=== PATIENT | male | born 2000 | race Caucasian/White ===

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

== ENCOUNTER 2019-09-27 14:31 | Emergency (ER) | payer SELFPAY ==
--- NOTE | 2019-09-27 15:25 | ER ---
Nurse's Notes [facility] Name: Doyle Grayson Age: 18 yrs Sex: Male : 2000 Arrival Date: 09/27/2019 Time: 14:33 Bed 23 Private MD: Diagnosis: Low back pain;Pain in left wrist;Pain in right wrist Presentation: 09/27 15:06 Presenting complaint: Patient states: Back pain started a month ago, bilateral wrist rb1 pain x 1 week. Transition of care: patient was not received from another setting of care. Onset of symptoms was August 28, 2019. 15:06 Method Of Arrival: Ambulatory rb1 15:06 Acuity: DORIAN 3 rb1 15:42 Risk Assessment: Do you want to hurt yourself or someone else? Patient reports no tr5 desire to harm self or others. Initial Sepsis Screen: Does the patient meet any 2 criteria? No. Patient's initial sepsis screen is negative. Does the patient have a suspected source of infection? No. Patient's initial sepsis screen is negative. Care prior to arrival: None. Triage Assessment: 15:08 General: Appears in no apparent distress. Behavior is calm, cooperative. tr5 15:09 Neuro: Level of Consciousness is awake, alert, obeys commands, Oriented to person, rb1 place, time, situation. Cardiovascular: Capillary refill < 3 seconds is brisk in bilateral fingers. Respiratory: Airway is patent Respiratory effort is even, unlabored, Respiratory pattern is regular, symmetrical. Derm: Skin is pink, warm \T\ dry. Musculoskeletal: Range of motion: intact in all extremities. Historical: - Allergies: 15:07 No Known Allergies; rb1 - PMHx: 15:07 ADD/ADHD; Overdose; rb1 - PSHx: 15:07 L femur; rb1 - Immunization history:: Adult Immunizations up to date. - Social history:: Smoking status: Patient uses tobacco products, smokes one pack cigarettes per day. - Ebola Screening: : Patient negative for fever greater than or equal to 101.5 degrees Fahrenheit, and additional compatible Ebola Virus Disease symptoms. Screenin:26 Abuse screen: Denies threats or abuse. Nutritional screening: No deficits noted. tr5 Tuberculosis screening: No symptoms or risk factors identified. Fall Risk None identified. Assessment: 15:26 Pain: Complains of pain in Bilateral wrists. Pain: Complains of pain in back. Neuro: tr5 Cardiovascular: Heart tones present Capillary refill < 3 seconds. Respiratory: Airway is patent Respiratory effort is even, unlabored, Respiratory pattern is regular, symmetrical. GI: No signs and/or symptoms were reported involving the gastrointestinal system. : No signs and/or symptoms were reported regarding the genitourinary system. EENT: No signs and/or symptoms were reported regarding the EENT system. Derm: No signs and/or symptoms reported regarding the dermatologic system. Vital Signs: 15:07 BP 107 / 66; Pulse 69; Resp 16; Temp 98.7(TE); Pulse Ox 98% on R/A; Weight 63.5 kg (R); rb1 Height 5 ft. 1 in. (154.94 cm) (R); Pain 6/10; 15:07 Body Mass Index 26.45 (63.50 kg, 154.94 cm) rb1 ED Course: 14:33 Patient arrived in ED. as 15:07 Triage completed. rb1 15:07 Arm band placed on left wrist. rb1 15:10 Yina Mann FNP-C [facility]. kb 15:10 Arthur Samaniego MD is Attending Physician. kb 15:15 Binh Galvan, KALIN is Primary Nurse. tr5 15:26 Placed in gown. Bed in low position. Call light in reach. tr5 15:41 No provider procedures requiring assistance completed. Patient did not have IV access tr5 during this emergency room visit. Administered Medications: No medications were administered Outcome: 15:24 Discharge ordered by MD. kb 15:43 Discharged to home ambulatory. tr5 15:43 Condition: stable 15:43 Discharge instructions given to patient, Instructed on discharge instructions, follow up and referral plans. Demonstrated understanding of instructions, follow-up care. 15:46 Patient left the ED. tr5 Signatures: Yina Mann FNP-C FNP-Zuleyma Rosales Rebecca, RN RN rb1 Binh Galvan RN RN tr5
--- NOTE | 2019-09-27 15:25 | EDPHYS ---
Physician Documentation [facility] Name: Doyle Grayson Age: 18 yrs Sex: Male : 2000 Arrival Date: 09/27/2019 Time: 14:33 Bed 23 Private MD: ED Physician Arthur Samaniego HPI: 09/27 15:26 This 18 yrs old Male presents to ER via Ambulatory with complaints of Wrist kb Pain, Back Pain. 15:26 The patient or guardian reports pain. The complaints affect the left wrist diffusely, kb right wrist diffusely. Context: The problem was sustained at home, resulted from an unknown cause. Onset: The symptoms/episode began/occurred 1 week(s) ago. Modifying factors: The symptoms are alleviated by nothing, the symptoms are aggravated by nothing. Associated signs and symptoms: The patient has no apparent associated signs or symptoms. The patient has not experienced similar symptoms in the past. The patient has not recently seen a physician. Pt reports he has had some falls skateboarding and has right lower back pain from that. States the pain started a month ago. Also reports weakness to both wrists with a hard knot in left wrist. States "someone told me it could be a calcium deposit." Denies injury to wrists. Has full ROM. Denies pain with movement. States he came in today because he normally doesn't have time off of work to get it checked out and he has a couple of days off right now.. Historical: - Allergies: 15:07 No Known Allergies; rb1 - PMHx: 15:07 ADD/ADHD; Overdose; rb1 - PSHx: 15:07 L femur; rb1 - Immunization history:: Adult Immunizations up to date. - Social history:: Smoking status: Patient uses tobacco products, smokes one pack cigarettes per day. - Ebola Screening: : Patient negative for fever greater than or equal to 101.5 degrees Fahrenheit, and additional compatible Ebola Virus Disease symptoms. ROS: 15:25 Constitutional: Negative for fever, chills, and weight loss, Neck: Negative for injury, kb pain, and swelling, Cardiovascular: Negative for chest pain, palpitations, and edema, Respiratory: Negative for shortness of breath, cough, wheezing, and pleuritic chest pain, Abdomen/GI: Negative for abdominal pain, nausea, vomiting, diarrhea, and constipation, : Negative for injury, bleeding, discharge, and swelling, Skin: Negative for injury, rash, and discoloration, Neuro: Negative for headache, weakness, numbness, tingling, and seizure. 15:25 Back: Positive for pain at rest, pain with movement, of the right mid back and right low back. 15:25 MS/extremity: Positive for pain, of the right wrist and left wrist. Exam: 15:26 Constitutional: This is a well developed, well nourished patient who is awake, alert, kb and in no acute distress. Head/Face: Normocephalic, atraumatic. ENT: Nares patent. No nasal discharge, no septal abnormalities noted. Tympanic membranes are normal and external auditory canals are clear. Oropharynx with no redness, swelling, or masses, exudates, or evidence of obstruction, uvula midline. Mucous membranes moist. Neck: Trachea midline, no thyromegaly or masses palpated, and no cervical lymphadenopathy. Supple, full range of motion without nuchal rigidity, or vertebral point tenderness. No Meningismus. Chest/axilla: Normal chest wall appearance and motion. Nontender with no deformity. No lesions are appreciated. Cardiovascular: Regular rate and rhythm with a normal S1 and S2. No gallops, murmurs, or rubs. Normal PMI, no JVD. No pulse deficits. Respiratory: Lungs have equal breath sounds bilaterally, clear to auscultation and percussion. No rales, rhonchi or wheezes noted. No increased work of breathing, no retractions or nasal flaring. Abdomen/GI: Soft, non-tender, with normal bowel sounds. No distension or tympany. No guarding or rebound. No evidence of tenderness throughout. Skin: Warm, dry with normal turgor. Normal color with no rashes, no lesions, and no evidence of cellulitis. MS/ Extremity: Pulses equal, no cyanosis. Neurovascular intact. Full, normal range of motion. Neuro: Awake and alert, GCS 15, oriented to person, place, time, and situation. Cranial nerves II-XII grossly intact. Motor strength 5/5 in all extremities. Sensory grossly intact. Cerebellar exam normal. Normal gait. 15:26 Back: pain, that is mild, of the right mid back and right low back. Vital Signs: 15:07 BP 107 / 66; Pulse 69; Resp 16; Temp 98.7(TE); Pulse Ox 98% on R/A; Weight 63.5 kg (R); rb1 Height 5 ft. 1 in. (154.94 cm) (R); Pain 6/10; 15:07 Body Mass Index 26.45 (63.50 kg, 154.94 cm) rb1 MDM: 15:11 Patient medically screened. kb 15:24 Data reviewed: vital signs, nurses notes. Data interpreted: Pulse oximetry: on room air kb is 98 %. Interpretation: normal. Counseling: I had a detailed discussion with the patient and/or guardian regarding: the historical points, exam findings, and any diagnostic results supporting the discharge/admit diagnosis, the need for outpatient follow up, a orthopedic surgeon, to return to the emergency department if symptoms worsen or persist or if there are any questions or concerns that arise at home. Administered Medications: No medications were administered Disposition: 09/27/19 15:24 Discharged to Home. Impression: Low back pain, Pain in left wrist, Pain in right wrist. - Condition is Stable. - Discharge Instructions: Musculoskeletal Pain, Back Pain, Adult, [id number], Wrist Pain, [id number], Back Exercises, [id number]. - Medication Reconciliation Form, Thank You Letter, Antibiotic Education, Prescription Opioid Use form. - Follow up: Emergency Department; When: As needed; Reason: Worsening of condition. Follow up: Private Physician; When: 2 - 3 days; Reason: Recheck today's complaints, Continuance of care, Re-evaluation by your physician. Addendum: 10/05/2019 11:03 Co-signature as Attending Physician, Arthur Samaniego MD I agree with the assessment and c parikh plan of care. Signatures: Yina Mann, ONLINE PROJECT MANAGER-C ONLINE PROJECT MANAGER-Arthur Villalpando MD MD cha Barber, Rebecca, RN RN rb1 Binh Galvan RN RN tr5 Corrections: (The following items were deleted from the chart) 09/27 15:46 15:24 09/27/2019 15:24 Discharged to Home. Impression: Low back pain; Pain in left tr5 wrist; Pain in right wrist. Condition is Stable. Forms are Medication Reconciliation Form, Thank You Letter, Antibiotic Education, Prescription Opioid Use. Follow up: Emergency Department; When: As needed; Reason: Worsening of condition. Follow up: Private Physician; When: 2 - 3 days; Reason: Recheck today's complaints, Continuance of care, Re-evaluation by your physician. kb
[2019-09-27 16:19] VITALS: BP 107/66; TEMP 98.7; O2SAT 98
== END 2019-09-27 15:46 | disposition home or self-care (01) ==
LOC: ER 14:31
DX: M25.532 Pain in left wrist (principal); M25.531 Pain in right wrist; F17.210 Nicotine dependence, cigarettes, uncomplicated
CPT/HCPCS: 99281

== ENCOUNTER 2022-06-05 07:58 | Emergency (ER) | payer SELFPAY ==
--- NOTE | 2022-06-05 08:41 | RAD REPORT ---
EXAM DESCRIPTION: CT - [id number] - 06/05/2022 8:27 am CLINICAL HISTORY: Fall injury, head and neck trauma, headache and neck pain COMPARISON: No comparisons TECHNIQUE: Axial 5 mm thick images of the head were obtained. Axial 2 mm thick images of the cervic al spine were obtained with sagittal and coronal reconstruction images generated and reviewed. All CT scans are performed using dose optimization technique as appropriate and may include automated exposure control or mA/KV adjustment according to patient size. FINDINGS: No intracranial hemorrhage, mass, edema or acute intracranial finding. Sulci are normal ra nge for patient age. Ventricles are normal. No extra-axial fluid collections. Mastoid air cells and p aranasal sinuses are clear. No globe or orbit abnormality seen. Cervical body height and alignment are normal. No disk space narrowing. Anterior endplate spurring at C6-7. No fracture or acute bony abnormality. Central canal detail is inherently limited. No paraspinal mass or hematoma. IMPRESSION: Negative CT head examination for acute or significant finding. Negative CT cervical spine examination for acute or significant finding. Patient has early age anter ior endplate spurring at C6-7.
[2022-06-05] MEDS ORDERED: ONDANSETRON 4 MG (ODT) TAB ONE (08:44)
[2022-06-05] MEDS ORDERED: ACETAMINOPHEN 500 MG TAB ONE (08:44)
--- NOTE | 2022-06-05 09:03 | ER ---
Nurse's Notes [facility] Name: Doyle Grayson Age: 21 yrs Sex: Male : 2000 Arrival Date: 06/05/2022 Time: 08:03 Bed 12 Private MD: Diagnosis: Fall (on)(from) incline;Headache;Conjunctival hemorrhage, left eye Presentation: 06/05 08:13 Chief complaint: Patient states: fell 5 ft while skate boarding off half pipe, pressure kr3 in head and tightness of muscles in neck. Coronavirus screen: Vaccine status: Patient reports being unvaccinated. Client denies travel out of the [place] in the last 14 days. Ebola Screen: Patient denies travel to an Ebola-affected area in the 21 days before illness onset. Mechanism of Injury: resulted from a fall, while skating. 08:13 Method Of Arrival: Ambulatory kr3 08:13 Acuity: DORIAN 3 kr3 09:13 Initial Sepsis Screen: Does the patient meet any 2 criteria? No. Patient's initial 1 sepsis screen is negative. Does the patient have a suspected source of infection? No. Patient's initial sepsis screen is negative. Risk Assessment: Do you want to hurt yourself or someone else? Patient reports no desire to harm self or others. 10:53 Onset of symptoms was June 04, 2022. 1 Triage Assessment: 08:23 General: Appears in no apparent distress. uncomfortable, Behavior is calm, cooperative, kr3 appropriate for age. 10:52 Neuro: Level of Consciousness is awake, alert, obeys commands, Reports headache. ll1 Historical: - PMHx: 08:22 ADD/ADHD; Overdose; kr3 - Immunization history:: Adult Immunizations up to date. - Social history:: Smoking status: Patient reports the use of cigarette tobacco products, smokes one pack cigarettes per day. Screenin:13 Abuse screen: Denies threats or abuse. Nutritional screening: No deficits noted. ll1 Tuberculosis screening: No symptoms or risk factors identified. Fall Risk Total Barba Fall Scale indicates No Risk (0-24 pts). Assessment: 08:40 Pain: Complains of pain in back of head and neck. kr3 09:13 Reassessment: No changes from previously documented assessment. Patient and/or family ll1 updated on plan of care and expected duration. Pain level reassessed. Vital Signs: 08:13 BP 119 / 76; Pulse 65; Resp 18; Temp 97.9; Pulse Ox 98% ; Weight 83.91 kg; Height 5 ft. kr3 2 in. (157.48 cm); 08:13 Body Mass Index 33.84 (83.91 kg, 157.48 cm) kr3 Alina Coma Score: 08:13 Eye Response: spontaneous(4). Verbal Response: oriented(5). Motor Response: obeys kr3 commands(6). Total: 15. 08:20 Eye Response: spontaneous(4). Verbal Response: oriented(5). Motor Response: obeys pm1 commands(6). Total: 15. 08:20 Eye Response: spontaneous(4). Verbal Response: oriented(5). Motor Response: obeys pm1 commands(6). Total: 15. ED Course: 08:03 Patient arrived in ED. mr 08:07 Xander Reyes, NIC is PHCP. pm1 08:07 Jose C Wong MD is Attending Physician. pm1 08:21 Triage completed. kr3 08:24 Patient placed in an exam room, on a stretcher. kr3 08:28 CT Head C Spine In Process Unspecified. EDMS 08:39 Nikki Lu RN is Primary Nurse. kr3 09:10 Patient has correct armband on for positive identification. Bed in low position. Call ll1 light in reach. Cardiac monitoring not applicable on this patient. 09:13 Arm band placed on. ll1 09:13 No provider procedures requiring assistance completed. Patient did not have IV access ll1 during this emergency room visit. Administered Medications: 08:35 Drug: Zofran (Ondansetron) 4 mg Route: PO; kr3 10:54 Follow up: Response: No adverse reaction ll1 08:35 Drug: Tylenol 1000 mg Route: PO; kr3 10:54 Follow up: Response: No adverse reaction ll1 Medication: 10:54 VIS not applicable for this client. ll1 Outcome: 09:03 Discharge ordered by . pm1 09:13 Patient left the ED. ll1 09:13 Discharged to home ambulatory. ll1 09:13 Condition: stable 09:13 Discharge instructions given to patient, Instructed on discharge instructions, follow up and referral plans. medication usage, Demonstrated understanding of instructions, follow-up care, medications, Prescriptions given X 1. Signatures: Dispatcher [employer] Medina Russell AmyXander NP TAB BUILDER pm1 John Arias RN RN ll1 Nikki Lu RN RN kr3
--- NOTE | 2022-06-05 09:04 | EDPHYS ---
Physician Documentation [facility] Name: Doyle Grayson Age: 21 yrs Sex: Male : 2000 Arrival Date: 06/05/2022 Time: 08:03 Bed 12 Private MD: ED Physician Jose C Wong HPI: 06/05 08:20 This 21 yrs old Male presents to ER via Unassigned with complaints of Head Injury-Adult.pm1 08:20 The patient or guardian reports pain. The complaints affect the right side of the back pm1 of head. Context of injury: The problem was sustained outdoors, at On skateboarding quarter pike, resulted from a fall, skateboarding, 5 foot tall quarter pike. Onset: The symptoms/episode began/occurred yesterday. Associated signs and symptoms: Loss of consciousness: This patient did not experience any loss of consciousness. Pertinent positives: nausea, neck pain, Pertinent negatives: vomiting. Severity of symptoms: in the emergency department the symptoms have improved, neck pain improved. The patient has not experienced similar symptoms in the past. The patient has not recently seen a physician. Patient skating up quarter pike and then fell when he attempted a move to stay at the top of the pike. Patient landed flat on his back hitting his head. Negative for LOC. Positive for headache and neck pain. Neck pain has improved. Positive for nausea. Negative for vomiting, Numbness tingling and weakness to extremities. Historical: - PMHx: 08:22 ADD/ADHD; Overdose; kr3 - Immunization history:: Adult Immunizations up to date. - Social history:: Smoking status: Patient reports the use of cigarette tobacco products, smokes one pack cigarettes per day. ROS: 08:20 Constitutional: Negative for fever, chills, and weight loss, Cardiovascular: Negative pm1 for chest pain, palpitations, and edema, Respiratory: Negative for shortness of breath, cough, wheezing, and pleuritic chest pain. 08:20 Back: Negative for injury and pain, MS/Extremity: Negative for injury and deformity, Skin: Negative for injury, rash, and discoloration. 08:20 Neck: Positive for mild neck pain that has improved from yesterday, Negative for stiffness, swelling. 08:20 Abdomen/GI: Positive for nausea, Negative for abdominal pain, vomiting. 08:20 Neuro: Positive for headache, of the right side of the back of head, Negative for gait disturbance, loss of consciousness, numbness, tingling, weakness. 08:20 All other systems are negative. Exam: 08:20 Constitutional: This is a well developed, well nourished patient who is awake, alert, pm1 and in no acute distress. Head/Face: Normocephalic, atraumatic. 08:20 Skin: Warm, dry with normal turgor. Normal color with no rashes, no lesions, and no evidence of cellulitis. MS/ Extremity: Pulses equal, no cyanosis. Neurovascular intact. Full, normal range of motion. 08:20 Eyes: 08:20 Eyes: Pupils: no acute changes, shape is regular, normal reaction to light, Extraocular movements: no acute changes, Conjunctiva: subconjunctival hemorrhage(s), seen in the left eye, at 9 o'clock. 08:20 ENT: Exam is negative for acute changes, External ear(s): are unremarkable, Ear canal(s): are normal, bleeding, is not appreciated, TM's: are normal, no rupture. 08:20 Neck: Exam negative for acute changes, External neck: no acute changes, tenderness, is not appreciated, C-spine: vertebral tenderness, is not appreciated, ROM/movement: is normal, is supple, without pain, no range of motions limitations. 08:20 Cardiovascular: Exam negative for acute changes, Rate: normal, Rhythm: regular, Pulses: no pulse deficits are appreciated. 08:20 Respiratory: Exam negative for acute changes, respiratory distress, shortness of breath. 08:20 Abdomen/GI: Inspection: abdomen appears normal, Palpation: abdomen is soft and non-tender, in all quadrants. 08:20 Back: Exam negative for acute changes, pain, is absent, ROM is normal, painless. 08:20 Neuro: Exam negative for acute changes, Orientation: is normal, Mentation: is normal, Motor: is normal, moves all fours, Gait: is steady, at a normal pace, without difficulty. Vital Signs: 08:13 BP 119 / 76; Pulse 65; Resp 18; Temp 97.9; Pulse Ox 98% ; Weight 83.91 kg; Height 5 ft. kr3 2 in. (157.48 cm); 08:13 Body Mass Index 33.84 (83.91 kg, 157.48 cm) kr3 Alina Coma Score: 08:13 Eye Response: spontaneous(4). Verbal Response: oriented(5). Motor Response: obeys kr3 commands(6). Total: 15. 08:20 Eye Response: spontaneous(4). Verbal Response: oriented(5). Motor Response: obeys pm1 commands(6). Total: 15. 08:20 Eye Response: spontaneous(4). Verbal Response: oriented(5). Motor Response: obeys pm1 commands(6). Total: 15. MDM: 08:07 Patient medically screened. pm1 08:17 Data reviewed: vital signs. pm1 09:02 Counseling: I had a detailed discussion with the patient and/or guardian regarding: the pm1 historical points, exam findings, and any diagnostic results supporting the discharge/admit diagnosis, radiology results, the need for outpatient follow up, to return to the emergency department if symptoms worsen or persist or if there are any questions or concerns that arise at home. 06/05 08:19 Order name: CT Head C Spine; Complete Time: 08:43 pm1 Administered Medications: 08:35 Drug: Zofran (Ondansetron) 4 mg Route: PO; kr3 10:54 Follow up: Response: No adverse reaction ll1 08:35 Drug: Tylenol 1000 mg Route: PO; kr3 10:54 Follow up: Response: No adverse reaction ll1 Disposition: 16:11 Co-signature as Attending Physician, Jose C Wong MD. rn Disposition Summary: 06/05/22 09:03 Discharge Ordered Location: Home pm1 Problem: new pm1 Symptoms: have improved pm1 Condition: Stable pm1 Diagnosis - Fall (on)(from) incline pm1 - Headache pm1 - Conjunctival hemorrhage, left eye pm1 Followup: pm1 - With: Emergency Department - When: As needed - Reason: Worsening of condition Followup: pm1 - With: Private Physician - When: 2 - 3 days - Reason: Recheck today's complaints, Continuance of care, Re-evaluation by your physician Discharge Instructions: - Discharge Summary Sheet pm1 - General Headache Without Cause pm1 - Subconjunctival Hemorrhage pm1 Forms: - Medication Reconciliation Form pm1 - Thank You Letter pm1 - Antibiotic Education pm1 - Prescription Opioid Use pm1 Prescriptions: - ondansetron 4 mg Oral tablet,disintegrating - take 1 tablet by ORAL route every 8 hours As needed; 10 tablet; Refills: 0, pm1 Product Selection Permitted Signatures: Dispatcher [employer] EDJose C Ramirez MD MD rn Marinas, Patrick, NP [employer]BIEE LEAD DEVELOPER pm1 Nikki Lu RN RN kr3 John Arias RN ll1
[2022-06-05 10:23] VITALS: BP 119/76; TEMP 97.9; O2SAT 98
== END 2022-06-05 09:13 | disposition home or self-care (01) ==
LOC: ER 07:58
DX: R51.9 Headache, unspecified (principal); H11.31 Conjunctival hemorrhage, right eye; W10.2XXA Fall (on)(from) incline, initial encounter; F17.210 Nicotine dependence, cigarettes, uncomplicated
CPT/HCPCS: 70450; 72125; 99283; Q0162

== ENCOUNTER 2022-06-13 10:41 | Emergency (ER) | payer SELFPAY ==
--- NOTE | 2022-06-13 11:35 | RAD REPORT ---
EXAM DESCRIPTION: RAD - Shoulder Left 2 View - 06/13/2022 11:20 am CLINICAL HISTORY: PAIN COMPARISON: No comparisons TECHNIQUE: Internal and external rotation views of the left shoulder were obtained. FINDINGS: There is no fracture or dislocation. AC joint is normal in appearance. No acute or suspici ous findings. IMPRESSION: Negative two-view left shoulder examination for acute findings.
--- NOTE | 2022-06-13 11:36 | RAD REPORT ---
EXAM DESCRIPTION: RAD - Knee Right 3 View - 06/13/2022 11:21 am CLINICAL HISTORY: PAIN COMPARISON: No comparisonsNone. FINDINGS: No fracture, dislocation or periosteal reaction.No joint effusion seen. No joint space kai rowing. No foreign body or other soft tissue abnormality. IMPRESSION: Negative right knee.
[2022-06-13] MEDS ORDERED: HYDROCODONE/APAP 5/325 MG TAB ONE (11:45)
--- NOTE | 2022-06-13 12:45 | EDPHYS ---
Physician Documentation [facility] Name: Doyle Grayson Age: 21 yrs Sex: Male : 2000 Arrival Date: 06/13/2022 Time: 10:46 Bed 10 Private MD: ED Physician Jose C Wong HPI: 06/13 11:02 This 21 yrs old Male presents to ER via Ambulatory with complaints of Knee Pain, pm1 Shoulder Pain. 11:02 The patient presents with an injury. The complaints affect the right knee. Context: The pm1 problem was sustained outdoors, resulted from Planting his right foot hard while skateboarding, the patient can fully bear weight, the patient is able to ambulate, Problem is a result from a previous injury: No. Onset: The symptoms/episode began/occurred 3 day(s) ago. Modifying factors: The symptoms are alleviated by elevating leg, the symptoms are aggravated by weight bearing, bending knee. Associated signs and symptoms: Pertinent negatives calf tenderness, swelling, tingling. Treatment prior to arrival includes: no previous treatment. Severity of symptoms: in the emergency department the symptoms are unchanged. The patient has not experienced similar symptoms in the past. The patient has not recently seen a physician. Patient also reporting left shoulder pain that is been present multiple years. Negative for new acute injury. Historical: - Allergies: 10:53 shrimp; bm7 10:53 ants; bm7 10:53 cats; bm7 - Home Meds: 10:53 None [Active]; bm7 - PMHx: 10:53 ADD/ADHD; bm7 - PSHx: 10:53 femur; bm7 - Immunization history:: Adult Immunizations up to date, Client reports having NOT received the Covid vaccine. - Social history:: Smoking status: Reported history of juuling and/or vaping. ROS: 11:02 Constitutional: Negative for fever, chills, and weight loss, Cardiovascular: Negative pm1 for chest pain, palpitations, and edema, Respiratory: Negative for shortness of breath, cough, wheezing, and pleuritic chest pain, Skin: Negative for injury, rash, and discoloration. 11:02 Neuro: Negative for headache, weakness, numbness, tingling, and seizure. 11:02 MS/extremity: Positive for Right knee pain, left shoulder pain, Negative for decreased range of motion, deformity. 11:02 All other systems are negative. Exam: 11:02 Constitutional: This is a well developed, well nourished patient who is awake, alert, pm1 and in no acute distress. Head/Face: Normocephalic, atraumatic. 11:02 Skin: Warm, dry with normal turgor. Normal color with no rashes, no lesions, and no evidence of cellulitis. 11:02 Eyes: Exam is negative for acute changes. 11:02 ENT: Exam is negative for acute changes, Mouth: no acute changes, Lips: normal, moist, Oral mucosa: normal, pink and intact, moist. 11:02 Cardiovascular: Exam negative for acute changes, Rate: normal, Rhythm: regular, Pulses: no pulse deficits are appreciated. 11:02 Respiratory: Exam negative for acute changes, respiratory distress, shortness of breath. 11:02 Musculoskeletal/extremity: Extremities: grossly normal except: noted in the right knee: Medial aspect of right knee with pain from positive Apley maneuver, internal rotation stress tests. Negative for drawer test. Patient able to extend and flex right knee passively and actively, Full range of motion intact passively and actively to left shoulder. 11:02 Neuro: Exam negative for acute changes, Orientation: is normal, Mentation: is normal, Motor: is normal, moves all fours. Vital Signs: 10:52 BP 138 / 90; Pulse 61; Resp 16; Temp 98.0(TE); Pulse Ox 100% on R/A; Weight 83.91 kg bm7 (R); Height 5 ft. 3 in. (160.02 cm); Pain 10/10; 12:22 BP 128 / 76; Pulse 74; Resp 16; Pulse Ox 100% on R/A; bm7 10:52 Body Mass Index 32.77 (83.91 kg, 160.02 cm) bm7 MDM: 11:03 Patient medically screened. pm1 11:12 ED course: Patient refused crutches because he has many pairs at home already. pm1 12:44 Data reviewed: vital signs. Data interpreted: Pulse oximetry: on room air is 100 %. pm1 Interpretation: normal. Counseling: I had a detailed discussion with the patient and/or guardian regarding: the historical points, exam findings, and any diagnostic results supporting the discharge/admit diagnosis, radiology results, the need for outpatient follow up, a orthopedic surgeon, to return to the emergency department if symptoms worsen or persist or if there are any questions or concerns that arise at home. 06/13 10:56 Order name: Shoulder Left (2 View) XRAY; Complete Time: 11:39 pm1 06/13 10:56 Order name: Knee Right 3 View XRAY; Complete Time: 11:39 pm1 06/13 11:12 Order name: Knee Immobilizer; Complete Time: 11:13 pm1 Administered Medications: 11:54 Drug: HYDROcodone-acetaminophen 5 mg-325 mg 1 tabs Route: PO; ss 13:11 Follow up: Response: Pain is decreased bm7 Disposition Summary: 06/13/22 12:45 Discharge Ordered Location: Home pm1 Problem: new pm1 Symptoms: have improved pm1 Condition: Stable pm1 Diagnosis - Unspecified internal derangement of left knee pm1 - Pain in right shoulder pm1 Followup: pm1 - With: Emergency Department - When: As needed - Reason: Worsening of condition Followup: pm1 - With: Private Physician - When: 2 - 3 days - Reason: Recheck today's complaints, Continuance of care, Re-evaluation by your physician Discharge Instructions: - Discharge Summary Sheet pm1 - Crutch Use, Adult pm1 - How to Use a Knee Immobilizer pm1 - Shoulder Pain pm1 - Acute Knee Pain, Adult pm1 Forms: - Medication Reconciliation Form pm1 - Thank You Letter pm1 - Antibiotic Education pm1 - Prescription Opioid Use pm1 Prescriptions: - Diclofenac Sodium 75 mg Oral tablet,delayed release (DR/EC) - take 1 tablet by ORAL route 2 times per day As needed; 30 tablet; Refills: 0, pm1 Product Selection Permitted Addendum: 06/14/2022 19:42 Co-signature as Attending Physician, Jose C Wong MD. r n Signatures: Dispatcher [employer] EDJose C Ramirez MD MD rn Smirch, Shelby, RN RN ss Marinas, Patrick, NP ELIGIBILITY TECHNICIAN pm1 Valerie Espino RN RN bm7 Corrections: (The following items were deleted from the chart) 06/13 10:54 10:53 PMHx: Overdose; bm7 bm7
--- NOTE | 2022-06-13 12:45 | ER ---
Nurse's Notes [facility] Name: Doyle Grayson Age: 21 yrs Sex: Male : 2000 Arrival Date: 06/13/2022 Time: 10:46 Bed 10 Private MD: Diagnosis: Unspecified internal derangement of left knee;Pain in right shoulder Presentation: 06/13 10:52 Chief complaint: Patient states: My shoulder has always gone out of place since I was bm7 born and I think my left shoulder is out of place now. I also don't know what I did to my right knee but it hurts really bad. Coronavirus screen: At this time, the client does not indicate any symptoms associated with coronavirus-19. Ebola Screen: No symptoms or risks identified at this time. Initial Sepsis Screen: Does the patient meet any 2 criteria? No. Patient's initial sepsis screen is negative. Does the patient have a suspected source of infection? No. Patient's initial sepsis screen is negative. Risk Assessment: Do you want to hurt yourself or someone else? Patient reports no desire to harm self or others. Onset of symptoms is unknown. 10:52 Method Of Arrival: Ambulatory [facility] 10:52 Acuity: DORIAN 4 bm7 Triage Assessment: 10:53 General: Appears in no apparent distress. uncomfortable, Behavior is calm, cooperative, bm7 appropriate for age. Pain: Complains of pain in right knee. EENT: No deficits noted. No signs and/or symptoms were reported regarding the EENT system. Neuro: No deficits noted. Cardiovascular: No deficits noted. Respiratory: No deficits noted. GI: No deficits noted. No signs and/or symptoms were reported involving the gastrointestinal system. : No deficits noted. No signs and/or symptoms were reported regarding the genitourinary system. Derm: No deficits noted. No signs and/or symptoms reported regarding the dermatologic system. Musculoskeletal: Denies pain in, anterior aspect of left shoulder, posterior aspect of left shoulder and right knee. Historical: - Allergies: 10:53 shrimp; bm7 10:53 ants; bm7 10:53 cats; bm7 - Home Meds: 10:53 None [Active]; bm7 - PMHx: 10:53 ADD/ADHD; bm7 - PSHx: 10:53 femur; bm7 - Immunization history:: Adult Immunizations up to date, Client reports having NOT received the Covid vaccine. - Social history:: Smoking status: Reported history of juuling and/or vaping. Screenin:57 Abuse screen: Denies threats or abuse. Nutritional screening: No deficits noted. bm7 Tuberculosis screening: No symptoms or risk factors identified. Fall Risk None identified. Assessment: 10:57 Reassessment: No changes from previously documented assessment. bm7 Vital Signs: 10:52 BP 138 / 90; Pulse 61; Resp 16; Temp 98.0(TE); Pulse Ox 100% on R/A; Weight 83.91 kg bm7 (R); Height 5 ft. 3 in. (160.02 cm); Pain 10/10; 12:22 BP 128 / 76; Pulse 74; Resp 16; Pulse Ox 100% on R/A; bm7 10:52 Body Mass Index 32.77 (83.91 kg, 160.02 cm) bm7 ED Course: 10:46 Patient arrived in ED. mr 10:46 Valerie Espino, KALIN is Primary Nurse. bm7 10:53 Triage completed. bm7 10:53 Arm band placed on right wrist. bm7 10:55 Xander Reyes, NIC is PHCP. pm1 10:55 Jose C Wong MD is Attending Physician. pm1 10:57 No apparent distress. Resting quietly. Awaiting ED provider evaluation. bm7 10:57 Patient has correct armband on for positive identification. Bed in low position. Call bm7 light in reach. Adult w/ patient. Client placed on continuous cardiac and pulse oximetry monitoring. NIBP monitoring applied. 10:57 Patient maintains SpO2 saturation greater than 95% on room air. bm7 11:17 Shoulder Left (2 View) XRAY In Process Unspecified. EDMS 11:17 Knee Right 3 View XRAY In Process Unspecified. EDMS 13:10 No provider procedures requiring assistance completed. Patient did not have IV access bm7 during this emergency room visit. Knee immobilizer applied on left knee. Wound care:. Administered Medications: 11:54 Drug: HYDROcodone-acetaminophen 5 mg-325 mg 1 tabs Route: PO; ss 13:11 Follow up: Response: Pain is decreased bm7 Medication: 10:57 VIS not applicable for this client. bm7 Outcome: 12:45 Discharge ordered by . pm1 13:10 Discharged to home ambulatory, with family. bm7 13:10 Condition: good 13:10 Discharge instructions given to patient, family, Instructed on discharge instructions, follow up and referral plans. medication usage, Demonstrated understanding of instructions, follow-up care, medications, Prescriptions given X 1. 13:11 Patient left the ED. bm7 Signatures: Dispatcher [employer] EDNC Willis Medina Katty Sapp RN RN Xander Pickens NP UPHOLSTERY TECHNICIAN pm1 Valerie Espino RN RN bm7 Corrections: (The following items were deleted from the chart) 10:54 10:53 PMHx: Overdose; bm7 bm7
[2022-06-14 02:43] VITALS: TEMP 98; O2SAT 100
[2022-06-14 02:48] VITALS: BP 128/76
== END 2022-06-13 13:11 | disposition home or self-care (01) ==
LOC: ER 10:41
DX: M23.91 Unspecified internal derangement of right knee (principal); M25.512 Pain in left shoulder
CPT/HCPCS: 99284

== ENCOUNTER 2022-11-29 22:56 | Emergency (ER) | payer SELFPAY ==
[2022-11-30] MEDS ORDERED: HYDROCODONE/APAP 10/325 TAB ONE
--- NOTE | 2022-11-30 01:34 | ER ---
Nurse's Notes [facility] Name: Doyle Grayson Age: 22 yrs Sex: Male : 2000 Arrival Date: 11/29/2022 Time: 23:02 Bed 8 Private MD: Diagnosis: Unspecified internal derangement of right knee Presentation: 11/29 23:10 Chief complaint: Patient states: "I think I tore ligaments in my right knee. I was vc1 skateboarding". Coronavirus screen: Vaccine status: Patient reports being unvaccinated. Client denies travel out of the [place] in the last 14 days. At this time, the client does not indicate any symptoms associated with coronavirus-19. Ebola Screen: Patient negative for fever greater than or equal to 101.5 degrees Fahrenheit, and additional compatible Ebola Virus Disease symptoms Patient denies exposure to infectious person. Patient denies travel to an Ebola-affected area in the 21 days before illness onset. No symptoms or risks identified at this time. Risk Assessment: Do you want to hurt yourself or someone else? Patient reports no desire to harm self or others. Onset of symptoms is unknown. 23:10 Method Of Arrival: Wheelchair vc1 23:10 Acuity: DORIAN 2 vc1 23:16 Initial Sepsis Screen: Does the patient meet any 2 criteria? No. Patient's initial vc1 sepsis screen is negative. Does the patient have a suspected source of infection? No. Patient's initial sepsis screen is negative. Triage Assessment: 23:12 General: Appears in no apparent distress. uncomfortable, Behavior is calm, cooperative, vc1 appropriate for age. Pain: Complains of pain in right leg Pain currently is 6 out of 10 on a pain scale. at worst was 10 out of 10 on a pain scale. EENT: No deficits noted. No signs and/or symptoms were reported regarding the EENT system. Neuro: Level of Consciousness is awake, alert, obeys commands, Oriented to person, place, time, situation, Appropriate for age. Cardiovascular: No deficits noted. Respiratory: Airway is patent Respiratory effort is even, unlabored, Respiratory pattern is regular, symmetrical. GI: No deficits noted. No signs and/or symptoms were reported involving the gastrointestinal system. : No deficits noted. No signs and/or symptoms were reported regarding the genitourinary system. Derm: Bruising that is dark purple, brown, on posterior aspect of right knee, right calf, right knee and right kwok. Musculoskeletal: Reports pain in right leg. Injury Description: Bruise sustained to right leg. Historical: - Allergies: 23:12 ants; vc1 23:12 cats; vc1 23:12 shrimp; vc1 - Home Meds: 23:12 None [Active]; vc1 - PMHx: 23:12 ADD/ADHD; vc1 - PSHx: 23:12 femur; vc1 - Immunization history:: Client reports having NOT received the Covid vaccine. - Social history:: Smoking status: Patient denies any tobacco usage or history of. Screenin:14 Abuse screen: Denies threats or abuse. Nutritional screening: No deficits noted. vc1 Tuberculosis screening: No symptoms or risk factors identified. 23:34 [facility] ED Fall Risk Assessment (Adult) History of falling in the last 3 months, as6 including since admission Yes- single mechanical fall (1 pt) Score/Fall Risk Level 0 - 2 = Low Risk. Assessment: 23:33 General: Appears in no apparent distress. Behavior is calm, cooperative. Pain: as6 Complains of pain in right leg. Neuro: Level of Consciousness is awake, alert, obeys commands, Oriented to person, place, time, situation. Cardiovascular: Capillary refill < 3 seconds. Respiratory: Respiratory effort is even, unlabored. Derm: Bruising that is bright red, dark purple, brown, green, yellow, on right leg. Musculoskeletal: Swelling present in right kwok and right knee and right calf and posterior aspect of right knee and right leg. Vital Signs: 23:10 Weight 78.93 kg; Height 5 ft. 2 in. (157.48 cm); Pain 6/10; vc1 23:15 BP 131 / 78; Pulse 72; Resp 17; Temp 97.7; Pulse Ox 97% ; vc1 23:32 BP 127 / 81; Pulse 79; Resp 18 S; Pulse Ox 98% on R/A; as6 0303 01:32 BP 110 / 70; Pulse 75; Resp 20 S; Pulse Ox 98% on R/A; as6 11/29 23:10 Body Mass Index 31.82 (78.93 kg, 157.48 cm) vc1 ED Course: 11/29 23:02 Patient arrived in ED. ja2 23:12 Triage completed. vc1 23:12 Xander Reyes NP is PHCP. pm1 23:12 Justice Toney MD is Attending Physician. pm1 23:14 Arm band placed on left wrist. vc1 23:28 Lukas Pradhan, RN is Primary Nurse. as6 23:34 Bed in low position. Call light in reach. Side rails up X 1. as6 03 01:32 Knee immobilizer applied on right knee. as6 01:48 No provider procedures requiring assistance completed. Patient did not have IV access as6 during this emergency room visit. Administered Medications: 11/29 23:58 Drug: [place] (HYDROcodone-acetaminophen) 10 mg-325 mg 1 tabs Route: PO; kd3 11/30 01:32 Follow up: Response: No adverse reaction as6 Medication: 01:48 VIS not applicable for this client. as6 Outcome: 01:34 Discharge ordered by . pm1 01:48 Discharged to home ambulatory, with crutches, with family. as6 01:48 Condition: stable 01:48 Discharge instructions given to patient, Instructed on discharge instructions, follow up and referral plans. medication usage, crutch walking, Demonstrated understanding of instructions, follow-up care, medications, crutch walking, Prescriptions given X 1. 01:49 Patient left the ED. as6 Signatures: Xander Reyes, NIC PATIENT ACCESS pm1 Sadia Quintanaica 2 Lukas Pradhan, KALIN GAGNON as6 Lynn Alexander RN RN kd3 Ebonie Ponce RN RN vc1
--- NOTE | 2022-11-30 01:34 | EDPHYS ---
Physician Documentation [facility] Name: Doyle Grayson Age: 22 yrs Sex: Male : 2000 Arrival Date: 11/29/2022 Time: 23:02 Bed 8 Private MD: ED Physician Justice Toney HPI: 11/29 23:50 This 22 yrs old Male presents to ER via Wheelchair with complaints of Knee Injury. pm1 23:50 The patient presents with an injury, pain. The complaints affect the right knee. pm1 Context: resulted from playing sports, skateboarding, the patient can fully bear weight, the patient is able to ambulate, Problem is a result from a previous injury: Yes. similar injury multiple times with possible internal derangement of knee. Has not seen orthopedics in the past for similar injuries. Onset: The symptoms/episode began/occurred 1 week(s) ago. Modifying factors: The symptoms are alleviated by remaining still, the symptoms are aggravated by weight bearing, bending knee. Associated signs and symptoms: Pertinent positives: swelling, Pertinent negatives numbness, tingling. Treatment prior to arrival includes: no previous treatment. Severity of symptoms: in the emergency department the symptoms are unchanged. The patient has experienced similar episodes in the past, a few times. The patient has not recently seen a physician. 23:50 Patient reports that he has crutches at home. pm1 Historical: - Allergies: 23:12 ants; vc1 23:12 cats; vc1 23:12 shrimp; vc1 - Home Meds: 23:12 None [Active]; vc1 - PMHx: 23:12 ADD/ADHD; vc1 - PSHx: 23:12 femur; vc1 - Immunization history:: Client reports having NOT received the Covid vaccine. - Social history:: Smoking status: Patient denies any tobacco usage or history of. ROS: 23:50 Constitutional: Negative for fever, chills, and weight loss, Cardiovascular: Negative pm1 for chest pain, palpitations, and edema, Respiratory: Negative for shortness of breath, cough, wheezing, and pleuritic chest pain, Abdomen/GI: Negative for abdominal pain, nausea, vomiting, diarrhea, and constipation, Back: Negative for injury and pain. 23:50 Skin: Negative for injury, rash, and discoloration. 23:50 Neuro: Negative for headache, weakness, numbness, tingling, and seizure. 23:50 MS/extremity: Positive for pain, of the right knee. 23:50 All other systems are negative. Exam: 23:50 Constitutional: This is a well developed, well nourished patient who is awake, alert, pm1 and in no acute distress. Head/Face: Normocephalic, atraumatic. 23:50 Skin: Warm, dry with normal turgor. Normal color with no rashes, no lesions, and no evidence of cellulitis. 23:50 Cardiovascular: Exam negative for acute changes. 23:50 Respiratory: Exam negative for acute changes, respiratory distress, shortness of breath. 23:50 Musculoskeletal/extremity: Extremities: grossly normal except: noted in the Tenderness to posterior and medial aspect of right knee: 23:50 Neuro: Exam negative for acute changes, Orientation: is normal, Mentation: is normal, Motor: Vital Signs: 23:10 Weight 78.93 kg; Height 5 ft. 2 in. (157.48 cm); Pain 6/10; vc1 23:15 BP 131 / 78; Pulse 72; Resp 17; Temp 97.7; Pulse Ox 97% ; vc1 23:32 BP 127 / 81; Pulse 79; Resp 18 S; Pulse Ox 98% on R/A; as6 11/30 01:32 BP 110 / 70; Pulse 75; Resp 20 S; Pulse Ox 98% on R/A; as6 11/29 23:10 Body Mass Index 31.82 (78.93 kg, 157.48 cm) vc1 MDM: 11/29 23:30 Patient medically screened. pm1 23:58 Differential diagnosis: dislocation, closed fracture, contusion, internal derangement pm1 of knee. 11/30 01:32 Data reviewed: radiologic studies, plain films, negative for fracture and dislocation. pm1 01:32 Counseling: I had a detailed discussion with the patient and/or guardian regarding: the pm1 historical points, exam findings, and any diagnostic results supporting the discharge/admit diagnosis, radiology results, the need for outpatient follow up, for definitive care, a orthopedic surgeon, to return to the emergency department if symptoms worsen or persist or if there are any questions or concerns that arise at home. 01:37 ED course: [place] reviewed. pm1 11/29 23:49 Order name: Knee Right 3 View XRAY pm1 11/29 23:49 Order name: Knee Immobilizer; Complete Time: 01:32 pm1 Administered Medications: 11/29 23:58 Drug: [place] (HYDROcodone-acetaminophen) 10 mg-325 mg 1 tabs Route: PO; kd3 11/30 01:32 Follow up: Response: No adverse reaction as6 Disposition: 06:02 Co-signature as Attending Physician, Justice Toney MD I reviewed the patient's care rt provided by the Advanced Practice Provider and agree with the diagnosis and treatment plan. Disposition Summary: 11/30/22 01:34 Discharge Ordered Location: Home pm1 Problem: new pm1 Symptoms: have improved pm1 Condition: Stable pm1 Diagnosis - Unspecified internal derangement of right knee pm1 Followup: pm1 - With: Emergency Department - When: As needed - Reason: Worsening of condition Followup: pm1 - With: Private Physician - When: 2 - 3 days - Reason: Recheck today's complaints, Continuance of care, Re-evaluation by your physician Discharge Instructions: - Discharge Summary Sheet pm1 - Crutch Use, Adult pm1 - How to Use a Knee Immobilizer pm1 - Acute Knee Pain, Adult pm1 Forms: - Medication Reconciliation Form pm1 - Thank You Letter pm1 - Antibiotic Education pm1 - Prescription Opioid Use pm1 Prescriptions: - Tylenol-Codeine #3 300 mg-30 mg Oral - take 2 tablet by ORAL route every 6 hours As needed; 20 tablet; Refills: 0, pm1 Product Selection Permitted Signatures: Dispatcher [employer] Xander Hinton, NIC TOOL MAKER pm1 Lynn Alexander RN RN kd3 Ebonie Ponce RN RN vc1 Justice Toney MD MD rt Lukas Pradhan RN as6
[2022-11-30 02:32] VITALS: TEMP 97.7
[2022-11-30 02:33] VITALS: O2SAT 98
[2022-11-30 02:34] VITALS: BP 110/70
--- NOTE | 2022-11-30 19:50 | RAD REPORT ---
EXAM DESCRIPTION: RAD - Knee Right 3 View - 11/30/2022 12:33 am CLINICAL HISTORY: PAIN. COMPARISON: None. TECHNIQUE: Three views of the right knee: AP, oblique, and lateral radiographs. FINDINGS: No acute osseous abnormality is identified. Alignment is maintained. No definite suprapate llar joint effusion, with suboptimal patient positioning on the lateral radiograph. IMPRESSION: No acute osseous abnormality identified. Electronically signed by: Collette Savage MD 11/30/2022 12:41 AM KRAFT DIGESTER OPERATOR Due to temporary technical issues with the PACS/Fluency reporting system, reports are being signed by the in house radiologists without review as a courtesy to insure prompt reporting. The interpreting radiologist is fully responsible for the content of the report
== END 2022-11-30 01:49 | disposition home or self-care (01) ==
LOC: ER 22:56
DX: M23.91 Unspecified internal derangement of right knee (principal); Z91.038 Other insect allergy status; Z91.013 Allergy to seafood
CPT/HCPCS: 99283